=== PATIENT | female | born 1990 | race Two or more races ===

== ENCOUNTER 2016-08-14 12:32 | Inpatient (IN) | payer OTHER ==
[2016-08-14 12:59] VITALS: BMI 37.9
[2016-08-14] MEDS ORDERED: LACTATED RINGERS 1,000 ML ONE (15:12)
[2016-08-14] MEDS ORDERED: LIDOCAINE 1% (PRES FREE) 30 ML VIAL ONE (15:12)
[2016-08-14] MEDS ORDERED: MINERAL OIL 25 ML BOT ONE (15:12)
[2016-08-14] MEDS ORDERED: OXYTOCIN 10 UNITS/ML VIAL ONE (15:12)
[2016-08-14] MEDS ORDERED: IV START KIT ONE (15:12)
[2016-08-14] MEDS ORDERED: OXYTOCIN IN LR 500 ML IV ONE (15:13)
[2016-08-14] MEDS ORDERED: PUMP TUBING ONE (15:13)
[2016-08-14] MEDS ORDERED: LIDOCAINE Viscous 2% 15 ML UDCUP ONE (15:13)
--- NOTE | 2016-08-14 15:20 | PDOC36 ---
Provider Note Subject: Triage Note Note: Jessica/ Suzi is a at 41 weeks who came to labor and delivery from the office in [place]. She was having an NST when a 2 minute deceleration into the 70's was noted. An JAMARI had been done this morning and this was 14.4cms. Pt arrived on the unit and was placed on EFM at 12:45. Since placement the baby has been reactive with no decelerations. Good movement has been felt by Suzi. She denies any strong uterine ctxs today. She reported some Saturday that were irregular. Discussed with Suzi the current findings and that this is very reassuring. Given that she is 41 weeks we are close enough to induce, however, her cervix is not ripe and this would require an induction that could last some days. Suzi is open to IOL if required. Will discuss with Dr. Elliott. O/ SVE - Closed/thick/high/posterior FHR 140, accels, no decels, moderate variability Ctxs - not palpable, very occasionally recorded on toco BP upon arrival 142/96, 130/88 Afebrile GBS neg A/ at 41 weeks with a 2 minute deceleration in the clinic this morning Reactive NST Cat 1 FHR Not in labor P/ Consult with OB *While talking with the OB patient had a variable lasting 1 minute. Will go ahead with IOL.
[2016-08-14] MEDS ORDERED: MISOPROSTOL 25 MCG TABLET PO SCH (15:30)
[2016-08-14 15:43] LABS: HEMATOCRIT 35.6 % (37.0-47.0); HEMOGLOBIN 11.4 gm/l (12.0-16.0); MEAN CELL VOLUME 80.7 fl (81.0-99.0); MEAN CORPUSCULAR HEMOGLOBIN 25.9 pg (27.0-31.0)
[2016-08-14 16:00] LABS: ALB/GLOB RATIO 1.1 (>1.0); ALBUMIN 3.4 gm/dL (3.5-5.7)
--- NOTE | 2016-08-14 16:02 | PCMAN ---
OB Admission Note - History : 1 Term: 0 : 0 Abortions (S&E): 0 Livin EDC:: 08/07/16 Gestational Age (weeks): 41 Days (#/7): 0 Admit Cervical Dilation:: closed Admit Cervical Effacement (%):: 0 Admit Station:: -3 Admit Presentaton:: vertex Membrane Status: Intact Membranes Comment:: intact Contractions: No Contraction Frequency:: irregular, not felt by patient Heart Rate:: 140 Status:: Cat 1 and 2 EFW:: 7lbs 12 ozs Summary of Course:: Suzi arrived on labor and delivery from the clinic after having a 2 minute audible deceleration while having an NST. She was placed on the EFM at 12:45 and subsequently had a reactive NST and a Cat 1 tracing. At approx 3pm, while consulting with Dr. Elliott, the FHR dipped again into the 80's, lasting 1 minute. Suzi is not in labor and is not feeling any contractions. Her JAMARI this morning was 14cms. Upon her arrival she also had a BP of 142/96 and then a repeat of 130/88. She denies any headaches, vision changes or RUQ pain. She has plus 1 edema of both feet. We reviewed that these are elevated for her and baseline PET labs will be done. We reviewed the current situation and how reactive the baby has been and this is reassuring. However, he is obviously having some random variables, and given she is already at 41 weeks, induction at this point is indicated. She understands this may take several days, given her cervix is unripe. In addition , there is a slightly increased risk for a . Patient and her partner acknowledges that an induction is appropriate and she will be admitted for cervical ripening. Suzi initiated care at 12 weeks and 1 day. She had a sure LMP and a 13 week UN was consistent with her LMP, giving an TANIA of 08/07/16. She has had regular care. TWG of 44lbs. Attended CBE with her partner. Her labs have been normal and GBS neg. She was positive for marijuana 01/31/16. Normotensive throughout her care. Current medications include PNV and iron. She has no allergies to medication. - Labs Blood Type: O (+) positive Rubella Status: Immune GBS Status: Negative Abnormal Labs: None - Physical Exam Psych/Mental Status: Mood/Affect Appropriate Neurological: Grossly Intact, Alert HEENT: Atraumatic Cardiovascular: Regular Rate and Rhythm Abdomen: Normal Bowel Sounds Genitourinary: Normal Female Genitalia Rectal Exam: Deferred Extremities: Full ROM, Edema Skin: Normal Color, Warm, Dry, Intact - Problems (1) Post-dates Status: Acute Code: O48.0Assessment/Plan: A/ at 41 weeks by sure LMP and first trimester UN Induction of labor for decelerations Cat 1 and 2 FHR GBS neg Elevated BPs on entry to labor and delivery P/ Initiate induction of labor now, starting with Cytotec 50mcg sublingual Consider Reed or Cook balloon for ripening when appropriate Continuous monitoring IV saline lock Routine Labs; including CMP, P/C Ratio and UDS Light diet if patient stable and FHR remains Cat 1 and 2
[2016-08-14 18:55] LABS: AMPHETAMINES/METHAMPHETAMINES NEGATIVE (NEGATIVE); COCAINE NEGATIVE (NEGATIVE); MARIJUANA NEGATIVE (NEGATIVE); METHADONE NEGATIVE (NEGATIVE); OPIATES NEGATIVE (NEGATIVE); TRICYCLIC ANTIDEPRESSANTS NEGATIVE (NEGATIVE)
[2016-08-14 19:35] LABS: CREATININE,RANDOM URINE 150 mg/dL
[2016-08-14] MEDS ORDERED: ZOLPIDEM TARTRATE 5 MG TABLET PO PRN (20:20)
[2016-08-14] MEDS ORDERED: ZOLPIDEM TARTRATE 5 MG TABLET ONE (20:21)
[2016-08-14] MEDS: MISOPROSTOL 25 MCG TABLET SL SCH (20:26)
[2016-08-15] MEDS: MISOPROSTOL 25 MCG TABLET SL SCH ×4 (01:18→18:27)
[2016-08-15] MEDS ORDERED: LACTATED RINGERS 500 ML IV ONE (04:58)
[2016-08-15] MEDS ORDERED: LACTATED RINGERS 1,000 ML ONE (14:08)
[2016-08-15] MEDS ORDERED: OXYTOCIN IN LR 500 ML IV PRN (14:20)
[2016-08-15] MEDS: LACTATED RINGERS 1,000 ML IV SCH ×2 (14:29→18:26)
--- NOTE | 2016-08-15 14:41 | PDOC36 ---
Provider Note Subject: labor progress note- post miso x3 assessment Note: S: Suzi has been sleeping on and off through the night. She has also been up repeatedly with diarrhea. She does state she feels rested overall and has been having some cramping throughout the night. O: VE: 4/100/-1, anterior, soft, BBOW CTX: irregular cramping, not traced, approx q 5-10min FHT: baseline 125/moderate variability with periods of minimal variability off and on throughout night/ accelerations noted, no decelerations noted VS: BP: 137/92 P: 73 R:20 T: 36.1 A: with IUP at 41w3d IOL for Post-dates and non-reassuring NST (miso PO x1, SL x2) Labile BPs (normotensive through the night) and normal PET labs Latent labor P: Reviewed progress made. Plan made to proceed with expectant management given progress. Will reassess in 4hrs or PRN.
--- NOTE | 2016-08-15 14:48 | PDOC36 ---
Provider Note Subject: labor progress note - 1330 Note: S: Has been walking, sitting, and sleeping the last few hours. She does report occasional strong contractions and overall still crampy. O: VE: 5/100/-1, posterior, soft, BBOW Leopolds, possible LOP CTX: q 4-6min FHT: baseline 135/moderate variability/no accelerations noted, no decelerations noted VS: BP: 135/80 P: 80 R:20 T: 35.9 A: with IUP at 41w1d IOL for Post-dates and non-reassuring NST (miso PO x1, SL x2) Labile BPs (normotensive through the night) and normal PET labs Latent labor Membranes intact, GBS neg P: Reviewed minimal progress and lack of regular contraction pattern. Reviewed my recommendation to initiate pitocin augmentation. Reviewed pain management options, IV, epidural, sterile water papules, positioning, hydrotherapy. She is open to all. Encouraged upright positions, spinning babies for the next couple of hours with onset of pit augmentation. Oxytocin ordered. Reassess in 2-4hrs or PRN.
[2016-08-15] MEDS ORDERED: FENTANYL 100 MCG/2 ML VIAL IV ONE (17:38)
[2016-08-15] MEDS ORDERED: FENTANYL 100 MCG/2 ML VIAL ONE (17:41)
--- NOTE | 2016-08-15 18:57 | PDOC36 ---
Provider Note Subject: labor progress note - desires pain management Note: S: Suzi is painful, tearful, with contractions but continuing to move, walking , hands & knees. Rates her coping at a 6. She is interested in pain medication. O: VE: deferred to post pain medication administration Leopolds, possible LOP CTX: q 2-3min FHT: baseline 135/moderate variability/no accelerations noted, no decelerations noted VS: BP: 133/89 P: 69 R:24 T: 35.9 A: with IUP at 41w1d IOL for Post-dates and non-reassuring NST (miso PO x1, SL x2) Labile BPs (normotensive through the night) and normal PET labs Active labor Membranes intact, GBS neg FHT: Cat. I P: Reviewed pain medication options IV vs epidural. Suzi requests IV pain medication at this time. IV fentanyl ordered. Encouraged side lying. VE: 7/100/-1, mid-position, BBOW. encouraged rest. Reassess as needed.
[2016-08-15] MEDS ORDERED: OXYTOCIN IN LR 500 ML IV ONE (19:40)
[2016-08-15] MEDS ORDERED: LIDOCAINE 1% (PRES FREE) 30 ML VIAL SUB-Q ONE (19:40)
[2016-08-15] MEDS ORDERED: LIDOCAINE Viscous 2% 15 ML UDCUP MM ONE (19:40)
[2016-08-15] MEDS ORDERED: CALCIUM CARBONATE 500 MG TAB.CHEW PO PRN (20:28)
[2016-08-15] MEDS ORDERED: MAGNESIUM HYDROXIDE 30 ML UDCUP PO PRN (20:28)
[2016-08-15] MEDS ORDERED: BENZOCAINE/MENTHOL 60 APPLIC/BOT TP PRN (20:28)
[2016-08-15] MEDS ORDERED: LANOLIN 50 APPLIC/7G TUBE TP PRN (20:28)
[2016-08-15 20:39] LABS: BASO # 0.1 K/mm3 (0.0-0.2); BASO % 0.3 % (0.2-1.0); EOS % 0.1 % (0.9-2.9); HEMATOCRIT 38.1 % (37.0-47.0); IMM NEUT # 0.1 K/mm3 (0-0.2); IMM NEUT% 0.4 % (0-1); LYMPH # 1.9 (1.0-4.8); LYMPH % 12.4 % (15-45); MEAN CELL VOLUME 81.9 fl (81.0-99.0); MEAN CORPUSCULAR HEMOGLOBIN 25.8 pg (27.0-31.0); MEAN CORPUSCULAR HGB CONC 31.5 g/dl (33.0-37.0); MEAN PLATELET VOLUME 12.4 fl (7.4-10.4); MONO # 0.6 (0.0-0.8); MONO % 3.8 % (4-12); PLATELET COUNT 281 K/mm3 (130-400); RED CELL DISTRIBUTION WIDTH 17.1 % (11.5-14.5)
--- NOTE | 2016-08-15 20:47 | PDOC36 ---
Provider Note Note: ob attending note: i was asked by ms. montgomery to evaluate patient for vacuum delivery with prolonged deceleration of monitor. i introduced myself to patient and partner, briefly discussed vacuum delivery, risks and reasons, they both gave verbal consent. cervix: fully dilated, +2 station, peter position. narrow introitus, for this reason a right mediolateral episiotomy was made, after injecting perineum with 1% lidocaine. vacuum easily applied on sagital suture line approximately 1.5 cm in front of the posterior fontanelle. with patient pushing with contraction, gentle traction was applied, which brought the vertex to +3 station. vacuum lasted two minutes, then popped off. vacuum was not reapplied, since patient pushed effectively from +3 station and baby's head delivered uneventfully, followed by easy delivery of shoulders and body. one loose loop of cord around neck noted. baby was placed skin to skin on mother 's abdomen. 7/9 at one and five minutes. at this time with baby out, i excused myself to attend to another patient. ms montgomery delivered the placenta and repaired the episiotomy. returned to room at 8:30pm to ask if patient, partner and family if they had any questions concerning my involvement with delivery. they did not and were very pleasant and thanked me for helping with the delivery. this was my complete interaction and treatment with/for ms evans.
[2016-08-15] MEDS: IBUPROFEN 800 MG TABLET PO PRN (21:44)
--- NOTE | 2016-08-16 00:16 | PCMDEL ---
Delivery Note - Labor 1st stage (hr/min):: 5 h 50 mins 2nd stage (hr/min):: 36 3rd stage (hr/min):: 6 Total (hr/min):: 6h 26 mins Pushed (hr/min):: 36 - Delivery Delivery (Date): 08/15/16 Delivery (Time): 19:20 Gender: Male Weight: 7 lb 8 oz Position: OA Umbilical Cord: 3 Vessel, Nuchal Cord Delayed Cord Clamping:: 2-3 min 1 Minute Total: 7 5 Minute Total: 9 Placenta:: Spontaneous, grossly intact, Shultze EBL:: 450mL Perineum:: mediolateral epis - 2nd degree laceration. No other lacerations Suture:: 3-0 chromic and 4-0 chromic Anesthesia/Meds:: none for labor lidocaine for epis and repair Length ROM:: 27 Comments:: First Stage: Suzi was induced after an audible prolonged deceleration in clinic on . On admission a the [facility] she had a reactive NST and catregory 1 tracing. She received three doses of misoprostol that were quite effective at cervical ripening. She had occasional contractions throughout the morning. At 1330 SVE was 5cm, oxytocin was initiated. She progressed well and was complete by 1800. Fetus remained Cat 1 throughout first stage and had episodes of Cat 2 with 2 decelerations to the 90s lasting 90-120 seconds. These decels resolved back to baseline with appropriate interventions and the fetus resumed Cat 1 tracing. Second Stage: Shortly after it was noted that she was complete with bulging bag, variable decelerations to the 90s were noted. Intrauterine resusctiation measures were initiated to resolve the decelerations. Since the recovery between decelerations was short and it was difficult to trace, it was decided to AROM and place an FSE. Pitocin was turned off, fluids were opened up and O2 applied. AROM revealed meconium stained amniotic fluid. Suzi pushed spontaneously with contractions during all of these intervetnions in multiple positions and descended easily to +2 station. Two decelerations to the 90s were noted during contractions that resolved back to baseline. When a prolonged deceleration lasting over 4 minutes that did not respond to intrauterine resuscitation measures occurred, Dr Lan was invited to the room to assess for vacuum delivery. At that time he cut a mediolateral episiotomy, applied the vacuum, and brought the to with one pop-off, and delivered a vigorous male infant aided by maternal effort. His account is recorded in his note. Apgars 7 & 9. Nuchal cord x1 After the delivery, Dr. Lan left to assist other patients and I resumed care for the third stage. Third Stage: Cord was clamped and cut by Cliff, the father, at 3 minutes of life. Cord blood obtained. Brisk bleeding was noted and IV pitocin was initiated. The placenta delivered with gentle traction in Shultze position, trailing membranes teased out with ring forceps. Placenta was grossly intact, membranes were stained by meconium and the maternal side had calcifications throughout. Fundus firm and midline, bleeding from the uterus was WNL. The vaginal vault and perineum were inspected and found to have a second degree tear at the site of the episiotomy. No other lacerations were noted. The eipsiotomy was repaired with good approximation and good hemostasis. QBL 475mL Post delivery count correct. within first 30 minutes. Mother and infant stable and bonding well.
[2016-08-16] MEDS: ACETAMINOPHEN 325 MG TABLET PO PRN ×2 (04:07→08:05)
[2016-08-16] MEDS: IBUPROFEN 800 MG TABLET PO PRN ×2 (05:30→15:09)
[2016-08-16 07:05] LABS: HEMATOCRIT 27.3 % (37.0-47.0); HEMOGLOBIN 8.8 gm/l (12.0-16.0)
[2016-08-16] MEDS: DOCUSATE SODIUM 100 MG CAPSULE PO SCH (08:06)
--- NOTE | 2016-08-16 11:57 | PDOC44 ---
- Subjective Day: 1 Feels well. Got help with latch and feels more confident now. Moving well without significant pain. Reports Pain Tolerable, Reports , Reports Lochia Moderate - Objective Temp Pulse Resp BP Pulse Ox 98.1 F 99 16 123/86 08/16/16 07:46 08/16/16 07:46 08/16/16 07:46 08/16/16 07:46 Lab Results 08/16/16 08/15/16 06:15 19:30 WBC 15.6 H RBC 4.65 Hgb 8.8 L D 12.0 Hct 27.3 L 38.1 Plt Count 281 08/15/16 19:30 MCH 25.8 L MCHC 31.5 L RDW 17.1 H Neut % (Auto) 83.0 H Lymph % (Auto) 12.4 L Mora % (Auto) 3.8 L Absolute Neuts (auto) 13.0 H Eosinophils % 0.1 L Current Medications Generic Name Dose Route Start Last Admin Trade Name Freq PRN Reason Stop Dose Admin Acetaminophen 325 - 650 mg 08/15/16 20:28 08/16/16 08:05 Tylenol PO 650 mg Q4H PRN Administration Pain (Mild) Benzocaine/Menthol 1 applic 08/15/16 20:28 08/15/16 21:44 Dermoplast TP 1 bot PRN PRN Administration Patient Comfort Calcium Carbonate/Glycine 500 - 1,000 mg 08/15/16 20:28 Tums PO BID PRN Indigestion Docusate Sodium 100 mg 08/16/16 09:00 08/16/16 08:06 Colace PO 100 mg DAILY JUVENTINO Administration Emollient Ointment 1 applic 08/15/16 20:28 08/16/16 08:08 [id number] TP 1 tube PRN PRN Administration sore nipples Ibuprofen 800 mg 08/15/16 20:28 08/16/16 05:30 Motrin PO 800 mg Q6H PRN Administration Pain (Mild) Magnesium Hydroxide 30 ml 08/15/16 20:28 Milk Of Magnesia PO BEDTIME PRN Constipation Sodium Chloride 10 ml 08/15/16 20:28 Normal Saline 10ml Flush IV PRN PRN IV Flush Sodium Chloride 10 ml 08/16/16 01:00 Normal Saline 10ml Flush IV Q8HR JUVENTINO - Physical Exam General: Afebrile Psych/Mental Status: Mood/Affect Appropriate, Bonding Well Neurological: Grossly Intact Breast: Soft, Nipples Intact Fundus: Firm, Midline, At Umbilicus Genitourinary: Normal Female Genitalia, Other (epis aligned, no edema)
[2016-08-16] MEDS: MISOPROSTOL 25 MCG TABLET SL SCH (12:52)
[2016-08-17 02:49] VITALS: BP 131/63
[2016-08-17] MEDS: IBUPROFEN 800 MG TABLET PO PRN ×2 (02:53→12:12)
--- NOTE | 2016-08-17 10:38 | PDOC39B ---
Hospital Course: ADMIT DATE: 08/14/16 DISCHARGE DATE:08/17/2016 ADMISSION DIAGNOSES:post dates PROCEDURES:Induction of labor Operative vacuum vaginal delivery mediolateral episiotomy repair of 2nd degree perineal laceration from episiotomy HISTORY OF PRESENT ILLNESS: 26 year old G1 T0 L0 at 41 weeks 1 days presenting with prolonged deceleration noted on NST in clinic. She was admitted for induction and progressed in a timely way to active labor and to . Second stage was complicated by prolonged decelerations and vigorous male infant was delivered by vacuum assist by Dr. Lan. CNM completed the repair and managed third stage. Apgars 7 & 9, EBL 475mL. HOSPITAL COURSE: The patient reports that her episiotomy site is sore but the pain is well-controlled. She is aware of self care for her perineum. Breastfeedign is typical of first-time mom with some pain with latch. She is wouking closely with to be able to et a consistent deep latch. will be followed by . By day of discharge the patient is ambulating, eating, voiding, and passing flatus without difficulty. Pain is controlled and lochia is appropriate. Eips incision is well-approximated, hemostatic, and not edematous. Midwifery 'After the ' handout given and reviewed with patient. - Physical Exam Vital Signs: Temp Pulse Resp BP Pulse Ox 97.9 F 97 16 131/63 08/17/16 02:46 08/17/16 02:46 08/17/16 02:46 08/17/16 02:46 General: Afebrile Psych/Mental Status: Mood/Affect Appropriate, Judgment/Insight Intact, Bonding Well Neurological: Grossly Intact, Alert, Oriented x 4 HEENT: Atraumatic Lungs: Clear to Auscultation Bilaterally, Normal Air Movement Cardiovascular: Regular Rate and Rhythm, Normal S1, Normal S2 Breast: Soft, Skin intact, Nipples Intact Fundus: Firm, Midline, Below Umbilicus Genitourinary: Normal Female Genitalia Lochia: Moderate Rectal Exam: Deferred Extremities: Full ROM Wound: Well Approximated - Discharge Diagnosis (1) Post-dates Qualifiers: Post-term type: 40-42 weeks gestation Qualifier Code: (O48.0 ) Post-term Status: ResolvedAssessment/Plan: A/ s/p operative vaginal delivery with epis Epis healing well , typical first time challenges Lochia appropriate Anemia secondary to blood loss P/ Discharge to home care today Follow up appt with early next week Orin to follow infant Unsure about PP contraception, discussed [email or web address] and recommended LARC. Follow up at 2w and 6wPP visits. PO iron BID (2) care following vaginal delivery Status: Acute - Discharge Plan Condition: Stable Disposition: Home Instruction Forms: Vaginal Discharge Instructions Additional Instructions: Take an iron supplement twice a day for 6 weeks. Do not take it with food or milk. You may take it with orange juice at least 30 minutes before eating other food. Discharge Medications: Iron supplement Follow-Up: Kareem Klein CNM [Certified Nurse [employer]] - (2pm at the [facility] August 29, 2016)
[2016-08-17] MEDS: DOCUSATE SODIUM 100 MG CAPSULE PO SCH (12:12)
[2016-08-17] MEDS ORDERED: IV START KIT ONE (15:24)
== END 2016-08-17 12:30 | disposition home or self-care (01) | DRG 775 ==
LOC: FBCOUT 12:32 → FBC 12:34 → FBCOUT 15:13
PROVIDERS: ADMIT Advanced Practice Midwife; ATTEND Advanced Practice Midwife
PROC: 3E0P7GC Introduction of Other Therapeutic Substance into Female Reproductive, Via Natural or Artificial Opening (ICD-10-PCS; 2016-08-14)
PROC: 10D07Z6 Extraction of Products of Conception, Vacuum, Via Natural or Artificial Opening (ICD-10-PCS; principal; 2016-08-15)
PROC: 0KQM0ZZ Repair Perineum Muscle, Open Approach (ICD-10-PCS; 2016-08-15)
PROC: 10907ZC Drainage of Amniotic Fluid, Therapeutic from Products of Conception, Via Natural or Artificial Opening (ICD-10-PCS; 2016-08-15)
PROC: 4A1H7CZ Monitoring of Products of Conception, Cardiac Rate, Via Natural or Artificial Opening (ICD-10-PCS; 2016-08-15)
PROC: 10H073Z Insertion of Monitoring Electrode into Products of Conception, Via Natural or Artificial Opening (ICD-10-PCS; 2016-08-15)
DX: O76 Abnormality in fetal heart rate and rhythm complicating labor and delivery (principal); D62 Acute posthemorrhagic anemia; Z37.0 Single live birth; O48.0 Post-term pregnancy; O70.1 Second degree perineal laceration during delivery; O99.02 Anemia complicating childbirth; Z3A.41 41 weeks gestation of pregnancy; O77.0 Labor and delivery complicated by meconium in amniotic fluid

== ENCOUNTER 2016-08-20 16:01 | Outpatient (CLI) | payer OTHER | END 2016-08-20 16:02 | disposition home or self-care (01) | LOC: BABIESSH 16:01 | PROVIDERS: ATTEND Advanced Practice Midwife | DX: Z39.1 Encounter for care and examination of lactating mother (principal) ==

== ENCOUNTER 2016-08-23 16:14 | Outpatient (CLI) | payer OTHER | END 2016-08-23 16:15 | disposition home or self-care (01) | LOC: BABIESSH 16:14 | PROVIDERS: ATTEND Advanced Practice Midwife | DX: Z39.1 Encounter for care and examination of lactating mother (principal) ==